=== PATIENT | male | born 1975 | race Caucasian/White ===

== ENCOUNTER 2023-04-25 06:17 | Emergency (ER) | payer OTHER, SELFPAY ==
[2023-04-25] VITALS (7 sets, daily range): BP systolic 115–148; BP diastolic 75–99; PULSE 57–59; RESP 16; TEMP 35.6–36.6; O2SAT 98; BMI 40.9
--- NOTE | 2023-04-25 06:23 | ED.GENADULT ---
HPI - General Adult General Time Seen by Provider: 06:28 Date Seen: 04/25/23 Chief complaint: Arrhythmia/Palpitations Stated complaint: afib Time Seen by Provider: 04/25/23 06:32 Source: patient, family, RN notes reviewed and old records reviewed Mode of arrival: ambulatory Limitations: no limitations History of Present Illness HPI narrative: 47-year-old male who comes in today with concern for atrial fibrillation. Said he had this in the past and over the last couple of days feels like it may be happening again. He describes it as feeling that skipped beats. Took some propanolol this morning which he had left over from several years ago. Denies chest pain or shortness of breath with this. Has started drinking caffeine again recently which he cut out when he was having issues before prior. Related Data Home Medications Medication Instructions Recorded Confirmed omeprazole 10 mg capsule,delayed 10 mg PO DAILY 04/25/23 04/25/23 release Previous Rx's Medication Instructions Recorded metoprolol succinate 25 mg 12.5 mg (1/2 x 25 mg) PO DAILY #30 04/25/23 tablet,extended release 24 hr tabs propranolol 20 mg tablet 20 mg PO TID PRN palpita #90 tabs 04/25/23 Allergies Allergy/AdvReac Type Severity Reaction Status Date / Time Penicillins AdvReac Verified 04/25/23 06:25 [facility] [place] Medical History (Updated 04/25/23 @ 06:36 by Jesus Watts MD) History of atrial fibrillation ?Z86.79 - Personal history of other diseases of the circulatory system (ICD-10) Social History Smoking Status: Never smoker Do you use any of these nicotine containing products: None How often do you have a drink containing alcohol: never AUDIT-C Alcohol total score: 0 Non-prescribed substance use: denies use Exam Narrative: Exam Narrative: General: Well-developed and well-nourished, no acute distress Head: Atraumatic and normocephalic Eyes: Pupils are equal reactive, extraocular motions intact, conjunctiva clear ENT: External nose and ears are normal, posterior pharynx without erythema or exudate Neck: No midline cervical tenderness, full spontaneous range of motion the neck, trachea midline, no adenopathy Heart: Regular rate and rhythm no murmurs or thrills, occasional extrasystole Lungs: Clear to auscultation bilaterally without wheezes or crackles Abdomen: Soft, nontender, nondistended with active bowel sounds Musculoskeletal: No tenderness, deformity, or edema Neurologic: Awake, alert, and oriented x3, no gross focal neurologic deficits, cranial nerves intact as tested Psych: Mood and affect are appropriate Skin: No rashes Const: Vital Signs, click to edit/add: Vital Signs - 24 hr 04/25/23 06:23 04/25/23 06:32 04/25/23 06:46 Temperature 97.9 F Pulse Rate 59 L 57 L Pulse Rate [Left P ulse Oximeter] 58 L Respiratory Rate 16 16 16 Blood Pressure 137/99 H 119/75 Blood Pressure [Ri ght Upper Arm] 148/99 H Pulse Oximetry 98 98 Oxygen Delivery Me thod Room Air Course Course Hospital Course: Patient seen and examined, prior records reviewed. Patient with reported history of atrial fibrillation presents today with concern for atrial fibrillation . What he describes sounds like skipped beats, possible PVCs or PACs. On exam, heart is regular with occasional extrasystole most consistent PVC or PAC. EKG is ordered and does indeed show PAC. Will monitor patient, check electrolytes and TSH, anticipate discharge. Reevaluation(s) Time of Reevaluation #1: 07:22 Reevaluation #1: Labs independently interpreted by me are reassuring with normal CBC, reassuring electrolytes. TSH is pending. Discussed treatment with patient. He was started on low-dose metoprolol and follow up with primary care. Time of Reevaluation #2: 07:33 Reevaluation #2: Updated patient with diagnosis and plan, he would prefer to have propanolol instead of metoprolol. Discussed that he should not take these together. Vital Signs Vital signs: Initial Vital Signs Temperature 97.9 F 04/25/23 06:23 Temperature Source Temporal Artery Scan 04/25/23 06:23 Pulse Rate 58 L 04/25/23 06:23 Pulse Rhythm Irregular 04/25/23 06:23 Respiratory Rate 16 04/25/23 06:23 Blood Pressure 148/99 H 04/25/23 06:23 Blood Pressure Mean 115 H 04/25/23 06:23 Blood Pressure Position Sitting 04/25/23 06:23 Pulse Oximetry 98 04/25/23 06:23 Oxygen Delivery Method Room Air 04/25/23 06:23 Vital Signs Temperature 97.9 F 04/25/23 06:23 Pulse Rate 58 L 04/25/23 06:23 Respiratory Rate 16 04/25/23 06:23 Blood Pressure 148/99 H 04/25/23 06:23 Pulse Oximetry 98 04/25/23 06:23 Oxygen Delivery Method Room Air 04/25/23 06:23 Temperature 97.9 F 04/25/23 06:23 Pulse Rate 57 L 04/25/23 06:46 Respiratory Rate 16 04/25/23 06:46 Blood Pressure 119/75 04/25/23 06:46 Pulse Oximetry 98 04/25/23 06:46 Oxygen Delivery Method Room Air 04/25/23 06:23 Medical Decision Making Lab Data Labs: Lab Results 04/25/23 Range/Units 06:34 WBC 6.88 (4.50-11.00) K/uL RBC 5.37 (4.30-5.90) m/uL Hgb 14.5 (13.5-17.5) gm/dL Hct 44.2 (37.0-53.0) % MCV 82 (80-100) fL MCH 27 (26-34) pg MCHC 33 (32-36) gm/dL RDW Coeff of Elsy 13.3 (11.5-15.5) % Plt Count 263 (140-440) K/uL Neut % (Auto) 59.8 (42.0-72.0) % Lymph % (Auto) 29.2 (20-44) % [place] % (Auto) 6.3 (0.0-11.0) % Eos % (Auto) 3.5 (0.0-7.0) % Baso % (Auto) 0.9 (0.0-3.0) % Neut # (Auto) 4.12 (1.7-7.0) K/uL Lymph # (Auto) 2.01 (0.90-2.90) K/uL [place] # (Auto) 0.40 (0.00-0.90) K/UL Eos # (Auto) 0.24 (0.00-0.50) K/uL Baso # (Auto) 0.06 (0.00-0.30) K/uL Abs Immat Gran (auto) 0.02 (0.00-0.30) K/uL Imm/Tot Granulo (auto) 0.3 % Sodium 136 (135-149) mmol/L Potassium 4.2 (3.6-5.1) mmol/L Chloride 105 (96-114) mmol/L Carbon Dioxide 23 (20-32) mmol/L BUN 22 (5-24) mg/dL Creatinine 0.9 (0.5-1.5) mg/dL Estimated Creat Clear 107.02 Estimated GFR 107 ml/min Glucose 101 (60-115) mg/dL Calcium 9.6 (8.4-10.6) mg/dL Magnesium 2.0 (1.5-2.6) mg/dL NT-Pro-B Natriuret Pep 26 pg/mL ECG Data Attestation: I personally reviewed and interpreted this ECG as follows: Prior ECG tracings: not available for review Interpretation: Performed at 6:27 a.m. demonstrates sinus rhythm with PAC, heart rate 59, AR 152, QRS 100, QTC 384, no acute ischemic change. No prior for comparison. Discharge Plan Discharge Clinical Impression: Palpitations, Premature atrial complexes Patient Disposition: Home, Self-Care Condition: Stable Instructions: Premature Atrial Contractions (ED) Additional Instructions: Avoid caffeine, stay well hydrated. Follow-up with your primary care doctor in 1 week for consideration for Cardiology referral. Take metoprolol daily or propanolol as needed. Do not take these together. Activity Level: Activity as Tolerated Discharge Diet: Regular Prescriptions: New metoprolol succinate 25 mg tablet extended release 24 hr 12.5 mg PO DAILY Qty: 30 0RF Rx Instructions: If you are still having episodes of palpitations after 3 days, increase to 1 tablet daily propranolol 20 mg tablet 20 mg PO TID PRN (Reason: palpita) Qty: 90 0RF No Action omeprazole 10 mg capsule,delayed release(DR/EC) 10 mg PO DAILY Follow Up/Referrals: Provider,Not a Local [Primary Care Provider] - Stand Alone Forms: IVDesk Info Instructions
[2023-04-25 07:00] LABS: Chloride* 105 mmol/L (96-114); Potassium* 4.2 mmol/L (3.6-5.1); Sodium* 136 mmol/L (135-149)
[2023-04-25 07:03] LABS: Blood Urea Nitrogen* 22 mg/dL (5-24); Carbon Dioxide* 23 mmol/L (20-32); Creatinine* 0.9 mg/dL (0.5-1.5); Est. Creatinine Clearance* 107.02; Estimated Glomerular Filt Rate 107 ml/min
[2023-04-25 07:04] LABS: Basophils Absolute Auto 0.06 K/uL (0.00-0.30); Basophils Percent Auto 0.9 % (0.0-3.0); Calcium* 9.6 mg/dL (8.4-10.6); Eosinophils Absolute Auto 0.24 K/uL (0.00-0.50); Eosinophils Percent Auto 3.5 % (0.0-7.0); Glucose* 101 mg/dL (60-115); Hematocrit 44.2 % (37.0-53.0); Hemoglobin* 14.5 gm/dL (13.5-17.5); Immature Granulocytes Abs Auto 0.02 K/uL (0.00-0.30); Immature Granulocytes Pct Auto 0.3 %; Lymphocytes Absolute Auto 2.01 K/uL (0.90-2.90); Lymphocytes Percent Auto 29.2 % (20-44); Mean Corpuscular HGB Conc 33 gm/dL (32-36); Mean Corpuscular Hemoglobin 27 pg (26-34); Mean Corpuscular Volume 82 fL (80-100); Monocytes Percent Auto 6.3 % (0.0-11.0); Neutrophils Absolute Auto 4.12 K/uL (1.7-7.0); Neutrophils Percent Auto 59.8 % (42.0-72.0); Platelet Count* 263 K/uL (140-440); RDW Coefficient of Variation % 13.3 % (11.5-15.5); Red Blood Count 5.37 m/uL (4.30-5.90); White Blood Count* 6.88 K/uL (4.50-11.00)
[2023-04-25 07:12] LABS: Slide Review Reflex No
[2023-04-25 07:19] LABS: NT Pro B Type NatriureticPept* 26 pg/mL
--- NOTE | 2023-04-26 17:48 | ED.NURSE ---
Patient called because metoprolol and propranolol prescriptions were not at [facility] as expected. [facility] pharmacy confirms they never received, verbal prescription information provided. Patient informed prescriptions were sent, advised to use the metoprolol or propranolol as prescribed but not both as the discharge instructions indicated. He denies questions or concerns.
== END 2023-04-25 07:41 | disposition home or self-care (01) ==
LOC: ED 06:45
PROVIDERS: Emergency Provider Family Medicine
DX: R00.2 Palpitations (principal); I49.1 Atrial premature depolarization
CPT/HCPCS: 36415; 80048; 83735; 83880; 84443; 85025; 93005; 99284

== ENCOUNTER 2023-05-07 16:21 | Outpatient (RCR) | payer OTHER, SELFPAY | END 2023-07-17 14:10 | disposition home or self-care (01) | PROVIDERS: Visit Provider Family Medicine | DX: M54.6 Pain in thoracic spine (principal); M54.2 Cervicalgia; Z51.89 Encounter for other specified aftercare | CPT/HCPCS: 97110; 97161 ==

== ENCOUNTER 2024-04-15 18:59 | Emergency (ER) | payer BC, SELFPAY ==
[2024-04-15 19:04] VITALS: BP 149/96; PULSE 64; RESP 16; TEMP 36.4; O2SAT 96; BMI 39.0
--- NOTE | 2024-04-15 19:16 | ED.GENADULT ---
HPI - General Adult General Chief complaint: Chest Pain Stated complaint: Pain in chest and left arm Time Seen by Provider: 04/15/24 19:10 History of Present Illness HPI narrative: This 48-year-old male comes in stating that he has been having some pain across his anterior upper chest for most of the past couple weeks. Today he felt some tingling in also has some pain in his posterior neck coming down into his shoulder and upper left arm. He does not report any nausea, vomiting, lightheadedness, shortness of breath, or diaphoresis. He does not have any exercise intolerance. He does not report any cardiac risk factors. He states that the pain is not reproducible with deep breath or other maneuvers. Related Data Home Medications ?Medication ?Instructions ?Recorded ?Confirmed omeprazole 10 mg capsule,delayed 10 mg PO DAILY 04/25/23 04/25/23 release Previous Rx's ?Medication ?Instructions ?Recorded metoprolol succinate 25 mg 12.5 mg (1/2 x 25 mg) PO DAILY #30 04/25/23 tablet,extended release 24 hr tabs propranolol 20 mg tablet 20 mg PO TID PRN palpita #90 tabs 04/25/23 Allergies Allergy/AdvReac Type Severity Reaction Status Date / Time Penicillins AdvReac Verified 04/25/23 06:25 Review of Systems Status of ROS: Reports: 10 or more systems reviewed and unremarkable except as noted in History and below Narrative: Constitutional: No fevers, no weight gain or loss. Eyes: No discharge. No vision changes. HENT: No congestion, no sore throat, no ear pain. Cardiovascular: No palpitations. Respiratory: No shortness of breath, no wheezes, no cough. Gastrointestinal: No abdominal pain, no vomiting, no diarrhea. Genitourinary: No dysuria, no hematuria. Musculoskeletal: Normal range of motion. Skin: No rashes, no pruritis. Neurological: No dizziness, weakness, sensory change, speech change. Endo/Heme/Allergies: No bruising or bleeding. No polydipsia. Pysch: no suicidality, no anxiety, no insomnia. All other systems reviewed and are negative. [facility] Medical History (Updated 04/15/24 @ 19:52 by Edwin Wong MD) History of atrial fibrillation ?Z86.79 - Personal history of other diseases of the circulatory system (ICD-10) Social History Smoking Status: Never smoker Do you use any of these nicotine containing products: None How often do you have a drink containing alcohol: never AUDIT-C Alcohol total score: 0 Non-prescribed substance use: denies use Exam Narrative: Exam Narrative: Constitutional: Well-developed, well-nourished, no acute distress. HEENT: Normocephalic, atraumatic. Neck: Normal range of motion. Nontender. Supple. Heart: Regular. No murmurs. Normal rate. Intact distal pulses. Lungs: Clear to auscultation. No chest discomfort. No wheezes, rhonchi, or rales. Abdomen: Normal bowel sounds. Nontender. No rebound tenderness. Genitalia: Deferred. Back: No midline tenderness. Normal range of motion. Extremities: Normal range of motion. No injury. Skin: Intact. No rash. Warm. No erythema or pallor. Neurologic: No altered sensation. No weakness. Alert and oriented. Psychiatric: No suicidality. No anxiety or depression. No insomnia. Nursing notes and vitals signs are reviewed. Const: Vital Signs, click to edit/add: Vital Signs - 24 hr 04/15/24 19:04 Temperature 97.5 F L Pulse Rate [Left P ulse Oximeter] 64 Respiratory Rate 16 Blood Pressure [Ri ght Upper Arm] 149/96 H Pulse Oximetry 96 Oxygen Delivery Me thod Room Air Course Vital Signs Vital signs: Initial Vital Signs Temperature 97.5 F L 04/15/24 19:04 Temperature Source Temporal Artery Scan 04/15/24 19:04 Pulse Rate 64 04/15/24 19:04 Pulse Rhythm Regular 04/15/24 19:04 Respiratory Rate 16 04/15/24 19:04 Blood Pressure 149/96 H 04/15/24 19:04 Blood Pressure Mean 113 H 04/15/24 19:04 Blood Pressure Position Sitting 04/15/24 19:04 Pulse Oximetry 96 04/15/24 19:04 Oxygen Delivery Method Room Air 04/15/24 19:04 Vital Signs Temperature 97.5 F L 04/15/24 19:04 Pulse Rate 64 04/15/24 19:04 Respiratory Rate 16 04/15/24 19:04 Blood Pressure 149/96 H 04/15/24 19:04 Pulse Oximetry 96 04/15/24 19:04 Oxygen Delivery Method Room Air 04/15/24 19:04 Temperature 97.5 F L 04/15/24 19:04 Pulse Rate 64 04/15/24 19:04 Respiratory Rate 16 04/15/24 19:04 Blood Pressure 149/96 H 04/15/24 19:04 Pulse Oximetry 96 04/15/24 19:04 Oxygen Delivery Method Room Air 04/15/24 19:04 Medical Decision Making MDM Narrative Medical decision making narrative: This patient comes in reporting chest discomfort over the past couple weeks. His symptoms are really not reproducible. He does not have exertional symptoms. His EKG and labs today returned with normal results. It seems more likely that this atypical chest pain is more related to his chest wall. Patient is satisfied with these results and feels okay to return home. Lab Data Labs: Lab Results 04/15/24 04/15/24 Range/Units 19:16 19:23 WBC 9.45 (4.50-11.00) K/uL RBC 5.06 (4.30-5.90) m/uL Hgb 13.8 (13.5-17.5) gm/dL Hct 42.2 (37.0-53.0) % MCV 83 (80-100) fL MCH 27 (26-34) pg MCHC 33 (32-36) gm/dL RDW Coeff of Elsy 13.2 (11.5-15.5) % Plt Count 247 (140-440) K/uL Neut % (Auto) 59.5 (42.0-72.0) % Lymph % (Auto) 30.7 (20-44) % [place] % (Auto) 6.6 (0.0-11.0) % Eos % (Auto) 2.6 (0.0-7.0) % Baso % (Auto) 0.5 (0.0-3.0) % Neut # (Auto) 5.62 (1.7-7.0) K/uL Lymph # (Auto) 2.90 (0.90-2.90) K/uL [place] # (Auto) 0.60 (0.00-0.90) K/UL Eos # (Auto) 0.25 (0.00-0.50) K/uL Baso # (Auto) 0.05 (0.00-0.30) K/uL Abs Immat Gran (auto) 0.01 (0.00-0.30) K/uL Imm/Tot Granulo (auto) 0.1 % Sodium 136 (135-149) mmol/L Potassium 3.9 (3.6-5.1) mmol/L Chloride 105 (96-114) mmol/L Carbon Dioxide 26 (20-32) mmol/L Anion Gap 5 L (7-15) mEq/L BUN 17 (5-24) mg/dL Creatinine 1.1 (0.5-1.5) mg/dL Estimated Creat Clear 86.64 Estimated GFR 84 ml/min Glucose 105 (60-115) mg/dL Calcium 9.4 (8.4-10.6) mg/dL POC Troponin I 0.00 L (0.01-0.04) ng/ml ECG Data Attestation: I personally reviewed and interpreted this ECG as follows: Interpretation: Normal sinus rhythm. Rate is 64 beats per minute. There are no ST or T-wave abnormalities. Discharge Plan Discharge Clinical Impression: Atypical chest pain Patient Disposition: Home, Self-Care Condition: Stable Additional Instructions: Continue current plans. Activity as tolerated. Follow up with MD or return if worsening. Prescriptions: No Action omeprazole 10 mg capsule,delayed release(DR/EC) 10 mg PO DAILY metoprolol succinate 25 mg tablet extended release 24 hr 12.5 mg PO DAILY Qty: 30 0RF Rx Instructions: If you are still having episodes of palpitations after 3 days, increase to 1 tablet daily propranolol 20 mg tablet 20 mg PO TID PRN (Reason: palpita) Qty: 90 0RF Follow Up/Referrals: Provider,Not a Local [Primary Care Provider] - Stand Alone Forms: [employer]wave[employer] Info Instructions
[2024-04-15 19:29] LABS: Basophils Absolute Auto 0.05 K/uL (0.00-0.30); Basophils Percent Auto 0.5 % (0.0-3.0); Eosinophils Absolute Auto 0.25 K/uL (0.00-0.50); Eosinophils Percent Auto 2.6 % (0.0-7.0); Hematocrit 42.2 % (37.0-53.0); Hemoglobin* 13.8 gm/dL (13.5-17.5); Immature Granulocytes Abs Auto 0.01 K/uL (0.00-0.30); Immature Granulocytes Pct Auto 0.1 %; Lymphocytes Percent Auto 30.7 % (20-44); Mean Corpuscular HGB Conc 33 gm/dL (32-36); Mean Corpuscular Hemoglobin 27 pg (26-34); Mean Corpuscular Volume 83 fL (80-100); Monocytes Percent Auto 6.6 % (0.0-11.0); Neutrophils Absolute Auto 5.62 K/uL (1.7-7.0); Neutrophils Percent Auto 59.5 % (42.0-72.0); Platelet Count* 247 K/uL (140-440); RDW Coefficient of Variation % 13.2 % (11.5-15.5); Red Blood Count 5.06 m/uL (4.30-5.90); White Blood Count* 9.45 K/uL (4.50-11.00)
[2024-04-15 19:34] LABS: Slide Review Reflex No
[2024-04-15 19:40] LABS: Chloride* 105 mmol/L (96-114)
[2024-04-15 19:41] LABS: Potassium* 3.9 mmol/L (3.6-5.1); Sodium* 136 mmol/L (135-149)
[2024-04-15 19:43] LABS: Creatinine* 1.1 mg/dL (0.5-1.5); Est. Creatinine Clearance* 86.64; Estimated Glomerular Filt Rate 84 ml/min
[2024-04-15 19:44] LABS: Anion Gap 5 mEq/L (7-15); Blood Urea Nitrogen* 17 mg/dL (5-24); Calcium* 9.4 mg/dL (8.4-10.6); Carbon Dioxide* 26 mmol/L (20-32); Glucose* 105 mg/dL (60-115)
== END 2024-04-15 19:56 | disposition home or self-care (01) ==
PROVIDERS: Emergency Provider Emergency Medicine Emergency Medical Services
DX: R07.9 Chest pain, unspecified (principal)
CPT/HCPCS: 36415; 80048; 84484; 85025; 93005; 99284

== ENCOUNTER 2024-11-12 15:29 | Outpatient (CLI) | payer BC, SELFPAY | END 2024-11-12 15:30 | disposition home or self-care (01) | PROVIDERS: PCP Internal Medicine; Visit Provider Internal Medicine | DX: R07.9 Chest pain, unspecified (principal) | CPT/HCPCS: 80053; 80061 ==

== ENCOUNTER 2024-11-25 18:08 | Emergency (ER) | payer BC, SELFPAY ==
--- OUTSIDE RECORDS SUMMARY | 2024-11-25 18:10 | XMS_ITS | Clinical Summary ---
Author Organization [facility] Address [facility] [place] [address] Care Team Providers Care Equal Opportunity Specialist Name Role Phone Pcp, No Primary Care Provider Unavailabl e Allergies Active Allergy Reactions Criticality Noted Date Comments Penicillamine Edema 02/07/2007 Medications LORazepam (ATIVAN) 0.5 mg tabIndications: Right renal mass Take 1 Tablet (0.5 mg) by mouth every 6 hours if needed for Anxiety. Take 30 minutes prior to MRI 1 Tablet 05/09/2024 Active Active Problems Problem Noted Date Diagnosed Date Right renal mass 05/09/2024 Atypical chest pain 12/02/2018 Overview (12/02/2018): November 2018: echocardiogram stress test normal. Lump in neck 09/09/2011 Overview (09/09/2011): August 2011: 3.5 x 1.7 x 1.0 cm enlarged, but otherwise normal appearing, lymph node in close proximity to the submandibular gland. Recheck in 1 month and order Contrast CT scan of neck if not gone. Elevated liver enzymes 09/09/2011 Overview (09/09/2011): August 2011: ALT 47. TOBACCO USE Immunizations Immunization Administration Dates Next Due Td, Preservative Free (age >= 7 Years) 1 Family History Medical History Relation Name Comments Cancer Mother Skin Genetic Other Grprs: colon CA ~father: HTN Relation Name Status Comments Mother Other Social History Tobacco Use Types Packs/Day Years Used Date Smoking Tobacco: Former Cigarettes 0.5 15 Smokeless Tobacco: Never Tobacco Cessation:Ready to Q uit: Yes; Counseling Given: Yes Comments:still occassionally smokes Alcohol Use Standard Drinks/Week Comments Yes 0 (1 standard drink = 0.6 oz pur e alcohol) occasional PHQ-2 Answer Date Recorded PHQ-2 Score 0 10/28/2019 Social Connections Answer Date Recorded Frequency of Communication with Friends and Fami ly Not on file 09/10/2021 Financial Resource Strain Answer Date R ecorded Difficulty of Paying Living Expenses Not on file 09/10/2021 Difficulty of Paying Living Expenses Not on file 09/10/2021 Sex and Gender Information Value Date Recorded Sex Assigned at Not on file 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[employer] Gender Identity Not on file Sexual Orientation Not on file Obstetrics History Last Filed Vital Signs Vital Sign Reading Time Taken Comments Blood Pressure 127/88 05/07/2024 2:57 PM CDT Pulse 88 05/07/2024 2:57 PM CDT Temperature 36.8 C (98.3 F) 07/21/2022 11:13 AM TEMPLATE WORKER Respiratory Rate 16 11/07/2019 2:10 PM TEMPLATE WORKER Oxygen Saturation 96% 05/07/2024 2:57 PM CDT Inhaled Oxygen Concentration - - Weight 132.2 kg (291 lb 8 oz) 04/10/2023 7:01 AM CDT Height 176.5 cm (5' 9.49) 11/07/2019 2:10 PM CS T Body Mass Index 42.44 11/07/2019 2:10 PM TEMPLATE WORKER Plan of Treatment Health Maintenance Due Date Last Done Comments Tdap 1988 HIV for age 15-65 1992 Hepatitis C screening for age 18-79 11/30/1995 BMI (ht and wt on same day) for age 18+ 11/07/2020 11/07/2019, 10/28/2019, 12/10/2018, Additional history exists Depression screening for age 12+ 11/07/2020 11/07/2019, 10/30/2019, 10/28/2019, Additional history exists Tetanus booster 02/07/2021 02/07/2011 Colonoscopy through age 75 2022 Lipids for age 45-75 2022 09/08/2011 COVID-19 vaccine series (2 - 2023- season) 2024 06/03/2021 Influenza Vaccine (#1) 2024 Pneumococcal series for age 6-49 Aged Out No longer eligible based on patient's age to complete this topic Procedures Procedure Name Priority Date/Time Associated Diagnosis Comments LIPID PANEL W REFLEX MEASURED LDL Routine 09/08/2011 8:14 AM TEMPLATE WORKER Screening cholesterol level from Last 3 Months or Most Recently Relevant to Health Maintenance Results * LIPID PANEL W REFLEX MEASURED LDL (09/08/2011 8:14 AM TEMPLATE WORKER) CHOLESTEROL,TOTAL 183 110 - 199 mg/dL [facility] TRIGLYCERIDES 110 40 - 149 mg/dL [facility] HDL CHOLESTEROL 53 >40 mg/dL [facility] CHOL/HDL RATIO 3.45 <4.51 [facility] LDL CHOLESTEROL 108 <131 mg/dL [facility] PATIENT STATUS Fasting [facility] Blood specimen (specimen) BLOOD SPECIMEN / Unknown 09/08/2011 8:14 AM TEMPLATE WORKER 09/08/2011 8:13 AM TEMPLATE WORKER us Myles Phillips MD CHEMISTRY Final Res ult [facility] [place]NAL ZIP [id number] [place] [id number] from Last 3 Months or Most Recently Relevant to Health Maintenance Insurance [facility] Care Teams Equal Opportunity Specialist Relationship Specialty Start Date End Date Pcp, No . PCP - General 01/29/18
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
--- OUTSIDE RECORDS SUMMARY | 2024-11-25 18:10 | XMS_ITS | Continuity of Care Document ---
Author Organization [place] [facility] Address [address] [place] [address] Assessment Encounter Date Assessment Date Assessment LastModified by Organization Details LastModified Time 11/24/2024 11/24/2024 ASSESSMENT: Patient is a good candidate for conservative care and the prognosis is for a favorable outcome that achieves the patients' goals. We discussed etiology, activity modifications, home care, and other treatment options. Initially, it is recommended that the patient receive in-office treatment 1 times per week for 8 weeks at which time a re-evaluation will be performed to determine an appropriate change in plan. Initially, treatment will focus on joint manipulation to restore range of motion and reduce pain. We will slowly progress to therapeutic exercises and activities to improve function, strength, and stability may also be used as warranted. If the patient is not responding as expected, more invasive procedures will be discussed along with a referral. All considerations above were discussed with the patient and questions answered to satisfaction. If the patient should have any additional questions, or should the condition evolve or worsen, the patient should not hesitate to contact our office. [email or web address] Not available 11/25/2024 17:49:22 Plan of Treatment Reminders Order Date Submit Date Provider Last Modified By Organization Details Last Modified Time Details Appointments None record ed. Lab None record ed. Referral None record ed. Procedures None record ed. Surgeries None record ed. Imaging None record ed. Medication Orders None record ed. Patient TargetsNo targets recorded. Patient InstructionsNo instructions recorded. Reason for Referral None Reported. Problems Name Problem SNOMED Code Status Onset Date Resolution Date Notes Provider Name and Address Organization Details Recorded Time Thoracic segmental dysfunction 941408453 Active 2024 Clark Pastrana [place] [address], [place], [address], [place] [facility] 17:49:23 Lumbar segmental dysfunction 479131910 Active 2024 [facility] [place] [address], [place], [address], [facility] - [facility] 5 17:49:23 Low back pain 259248264 Active 2024 [facility] [place] [address], [place], [address], [facility] - [facility] 5 17:49:23 Somatic dysfunction of sacral spine 709751636 Active 2024 [place], [place] [address], [place], [address], [facility] - [facility] 17:49:23 Problem Notes None recorded. Procedures Surgical History Date Name Laterality Status Provider Name and Address Organization Details Recorded Time 40438: Spinal manipulation , 3 to 4 regions completed [place], [place] [address], [place], [address], [facility] 11/25/2024 17:51:26 Imaging Results None recorded. Procedure Notes None recorded. Medical Equipment None Reported. Medications Name Sig Start Date Stop Date Status Note LastModified by Organization Details LastModified Time lorazepam 0.5 mg tablet TAKE 1 TABLET (0.5 MG) BY MOUTH EVERY 6 HOURS IF NEEDED FOR ANXIETY. TAKE 30 MINUTES PRIOR TO MRI active Not Available Not Available No t Available propranolol 20 mg tablet TAKE 1 TABLET BY MOUTH THREE TIMES A DAY NEEDED FOR PALPITATION S active Not Available Not Available No t Available esomeprazole magnesium 20 mg capsule,michael yed release PLEASE SEE ATTACHED FOR DETAILED DIRECTIONS active Not Available Not Available N ot Available Vitals None Recorded Social History None recorded. Functional Status None recorded. Mental Status None recorded. Family History Nothing Reported. Medical History No medical history recorded. Past Encounters Encounter ID Performer Location Encounter Start Date Encounter Closed Date Diagnosis/Indication Diagnosis SNOMED-CT Code Diagnosis ICD10 Code Diagnosis Note [id number] [facility] [address] [place] [address] 11/24/2024 15:08:37 11/25/2024 17:51:45 Lumbar segmental dysfunction 974834131 M99.03 Low back pain 106245213 M54.50 Somatic dy sfunction of sacral spine 287217472 M99.04 Thoracic s egmental dysfunction 022773243 M99.02 Health Concerns Section Related Observation LastModified by Organization Detai ls LastModified Time None Recorded Concern Status LastModified by Organization Details LastModified Time None Recorded Payers Encounter Date Sequence Insurance Name Policy Number Policy Corral Covered Member ID Corral Member ID Guarantor Name 11/24/2024 1 *SELF PAY* Mamadou Stauffer Notes Date Note Type Note Provider Name and Address Organization Details Recorded Time 11/24/2024 text/html HPI - Lumbar SpineReported bypatient.Location: left; With radiation to knee Quality:aching Severity:not changing Timing:morning Aggravating Factors:standing Alleviating Factors:ice Scot Kirby Pastrana [place] [address], [place], [address], [facility] 11/25/2024 17:51:42
--- OUTSIDE RECORDS SUMMARY | 2024-11-25 18:11 | XMS_ITS | Data Portability ---
Author Organization [place] [facility], [facility] Address [address] [place] [address] Assessment Encounter Date Assessment Date Assessment LastModified [...] Organization Details Recorded Time Thoracic segmental dysfunction 859309132 Active 2024 Clark Pastrana [place] [address], [place], [address], [place] [facility] 17:49:23 Lumbar segmental dysfunction 894242409 Active 2024 Clark Pastrana [place] [address], [facility] [place], [address], [place] [facility] 17:49:23 Low back pain 818433677 Active 2024 [place] [address], [place], [address], [place] [facility] 17:49:23 Somatic dysfunction of sacral spine 675045144 Active 2024 [facility] [place] Gr[address], [facility] [place], [address], [place] [facility] 17:49:23 Problem Notes None recorded. Procedures Surgical History Date Name Laterality Status Provider Name and Address Organization Details Recorded Time 38144: Spinal manipulation , 3 to 4 regions completed [facility] [place] [address], [place], [address], [facility] - [facility] 11/25/2024 17:51:26 Imaging Results None recorded. Procedure [...] SNOMED-CT Code Diagnosis ICD10 Code Diagnosis Note [id number] [facility] [address] [place] [address] [place] [address] 11/24/2024 15:08:37 11/25/2024 17:51:45 Lumbar segmental dysfunction 246340889 M99.03 Low back pain 156143004 M54.50 Somatic dy sfunction of sacral spine 578673611 M99.04 Thoracic s egmental dysfunction 179603077 M99.02 Health Concerns Section Related Observation LastModified by Organization Detai ls LastModified Time None Recorded Concern Status LastModified by Organization Details LastModified Time None Recorded Advance Directives Directive None Recorded Payers Encounter Date Sequence Insurance Name Policy Number Policy Corral Covered Member ID Corral Member ID Guarantor Name 11/24/2024 1 *SELF PAY* Mamadou Stauffer Notes Date Note Type Note Provider Name and Address Organization Details Recorded Time 11/24/2024 text/html HPI - Lumbar SpineReported bypatient.Location: left; With radiation to knee Quality:aching Severity:not changing Timing:morning Aggravating Factors:standing Alleviating Factors:ice Clark Pastrana [place] [address] [facility], [place], [address], [facility] - [facility] 11/25/2024 17:51:42
[2024-11-25 18:36] VITALS: BP 129/84; PULSE 63; RESP 18; TEMP 36.5; O2SAT 96; BMI 39.2
--- NOTE | 2024-11-25 19:41 | CRLHL7_ITS ---
For Patients: As a result of the Century Cures Act, medical imaging exams and procedure reports are released immediately into your electronic medical record. You may view this report before your referring provider. If you have questions, please contact your health care provider. INDICATION: Chest pain. TECHNIQUE: Chest 2 views. COMPARISON: 10/03/2016. FINDINGS: Cardiovascular and mediastinum: Heart size and vasculature are normal in caliber and appearance. Lungs and pleural spaces: No focal consolidation, pleural effusion, or pneumothorax. Bones and soft tissues: Unremarkable for age. IMPRESSION: No evidence of an acute pulmonary process. Dictated by Ramon Barrow MD @ 11/25/2024 8:37:02 PM (Electronically Signed)
[2024-11-25] MEDS: GI COCKTAIL (VISC LIDO/ANTACID) 30 ML PO (19:46)
--- OUTSIDE RECORDS SUMMARY | 2024-11-25 19:47 | XMS_ITS | Clinical Summary ---
Author Organization [facility] Address [facility] [place] [address] Care Team Providers Care Wildlife Conservation Officer Name Role Phone Pcp, No Primary Care [...] on file Legal Sex Male 5:49 AM OUTPATIENT ADMITTING CLERK Gender Identity Not on file Sexual Orientation Not on file Obstetrics History Last Filed Vital Signs Vital Sign Reading Time Taken Comments Blood Pressure 127/88 05/07/2024 2:57 PM CDT Pulse 88 05/07/2024 2:57 PM CDT Temperature 36.8 C (98.3 F) 07/21/2022 11:13 AM OUTPATIENT ADMITTING CLERK Respiratory Rate 16 11/07/2019 2:10 PM OUTPATIENT ADMITTING CLERK Oxygen Saturation 96% 05/07/2024 2:57 PM CDT Inhaled Oxygen Concentration - - Weight 132.2 kg (291 lb 8 oz) 04/10/2023 7:01 AM CDT Height 176.5 cm (5' 9.49) 11/07/2019 2:10 PM CS T Body Mass Index 42.44 11/07/2019 2:10 PM OUTPATIENT ADMITTING CLERK Plan of Treatment Health Maintenance Due Date [...] REFLEX MEASURED LDL Routine 09/08/2011 8:14 AM OUTPATIENT ADMITTING CLERK Screening cholesterol level from Last 3 Months or Most Recently Relevant to Health Maintenance Results * LIPID PANEL W REFLEX MEASURED LDL (09/08/2011 8:14 AM OUTPATIENT ADMITTING CLERK) CHOLESTEROL,TOTAL 183 110 - 199 mg/dL [facility] TRIGLYCERIDES 110 40 - 149 mg/dL [facility] HDL CHOLESTEROL 53 >40 mg/dL [facility] CHOL/HDL RATIO 3.45 <4.51 [facility] LDL CHOLESTEROL 108 <131 mg/dL [facility] PATIENT STATUS Fasting [facility] Blood specimen (specimen) BLOOD SPECIMEN / Unknown 09/08/2011 8:14 AM OUTPATIENT ADMITTING CLERK 09/08/2011 8:13 AM OUTPATIENT ADMITTING CLERK us Myles Phillips MD CHEMISTRY Final Res ult [facility] INTERNAL [address]IP [address] [place] [id number] from Last 3 Months or Most Recently Relevant to Health Maintenance Insurance [facility] Care Teams Wildlife Conservation Officer Relationship Specialty Start Date End Date Pcp, No . PCP - General 01/29/18
--- OUTSIDE RECORDS SUMMARY | 2024-11-25 19:47 | XMS_ITS | Clinical Summary ---
Author Organization [facility] Address [address] [place] [address] Care Team Providers Care Diagnostic Assistant Name Role Phone Sonia Chou M.D. Primary Care Provider [phone] Source Comments Patient records contain information from all sites at [facility]. For routine questions regarding patient records, call [phone] during business hours, M-F 8:00 AM - 5:00 PM Central Time. Record requests for emergency care only can be directed to [phone] at any time.[facility] Allergies Active Allergy Reactions Criticality Noted Date Comments Penicillins Other (see comments) Medium 05/06/2019 throat rahman. Occurred around the year 1999. [place] a severe heartburn-like burning sensation up the [...] Mimi ent decision) PPSV23 07/11/2021(Deferred: Patient veda edelmriaisabelle) SARS-COV-2 (COVID-19) - ELIANA CUTLER ([employer])(Discontinued) 06/03/2021 [...] week 04/05/2022 How often do you attend [facility] or confucianist services? 1 to 4 times per year 04/05/2022 Do you belong to any clubs o r organizations such as lutheran groups, unions, fraternal or athletic groups, or [...] Answer Date Recorded PHQ-2 Score 0 04/10/2022 [facility] [employer] of Occupat ional Health - Occupational Stress [...] your living situation today? I have a [facility] place to live 05/03/2023 Education Answer [...] Comments Blood Pressure 115/73 07/16/2023 2:43 PM [employer] Pulse 66 07/16/2023 2:43 PM [employer] Temperature 36.2 C (97.2 F) 05/10/2023 10:17 AM CDT Respiratory Rate 20 05/03/2023 10:09 PM CDT Oxygen Saturation 96% 05/10/2023 10:17 AM CDT Inhaled Oxygen Concentration - - Weight 134 kg (294 lb 15.6 oz) 07/16/2023 7:48 A M [employer] Height 179 cm (5' 10.47) 07/05/2021 3:09 [...] LIPID PANEL, S Routine 07/16/2023 9:29 AM [employer] Discomfort Chest COLOGUARD Routine 05/30/2023 5:15 AM CDT Screening Colon Cancer Average Risk BASIC METABOLIC PANEL, S/P STAT 05/03/2023 9:47 PM CDT from Last 3 Months or Most Recently Relevant to Health Maintenance Results * (ABNORMAL) Lipid Panel (07/16/2023 9:29 AM [employer]) Triglycerides 139 mg/dL 07/16/2023 9:50 AM [employer] [facility] Comment: ----REFERENCE VALUE---- Normal: <150 mg/dL Borderline High: 150-199 mg/dL High: 200-499 mg/dL Very High: > or =500 mg/dL Cholesterol, Total 252(H) mg/dL 2022 9:50 AM [employer] [facility] Comment: ----REFERENCE VALUE---- Desirable: < 200 mg/dL Borderline High: 200 - 239 mg/dL High: > or = 240 mg/dL Cholesterol, LDL, Calculated 175(H) mg/dL 07/16/2023 9:50 AM [employer] [facility] Comment: ----REFERENCE VALUE---- Desirable: <100 mg/dL Above Desirable: 100-129 mg/dL Borderline High: 130-159 mg/dL High: 160-189 mg/dL Very High: >=190 mg/dL ----ADDITIONAL INFORMATION---- LDL cholesterol calculated using the Rich/NIH equation. Cholesterol, HDL 52 >=40 mg/dL 07/16/20 9:50 AM [employer] [facility] Cholesterol, Non-HDL, Calculated 200(H) mg/dL 07/16/2023 9:50 AM [employer] [facility] Comment: ----REFERENCE VALUE---- Desirable: <130 mg/dL Above Desirable: 130-159 mg/dL Borderline High: 160-189 mg/dL High: 190-219 mg/dL Very High: > or =220 mg/dL Fasting (8 HR or more) No 07/16/2023 9:30 AM [employer] [facility] Blood (Blood, Venous) 07/16/2023 9:29 AM [employer] 07/16/2023 9:30 AM [employer] us Zeeshan Noel APRN, C.N.P. LAB BLOOD ADD-ON Final Result [facility] [address] [place] [address], [facility] RDWG [facility] [place] [address] [place] [address] * Cologuaquin - Sent Out Lab (05/30/2023 5:15 AM CDT) [facility] Signature Result Negative Negative 06/05/2023 10:27 AM [...] Charles et al, N Engl J Med 2014;370(14):5331-8311) The normal value (reference range) for this assay is negative. COLOGUARD RE-SCREENING RECOMMENDATION: Periodic colorectal cancer screening is an important part of preventive healthcare for asymptomatic individuals at average risk for colorectal cancer. Following a negative Cologuard result, the [place] Cancer Society and U.S. Multi-Society Task Force screening guidelines recommend a Cologuard re-screening interval of 3 years. References: [employer] Cancer Society Guideline for Colorectal Cancer Screening: https://www.cancer.org/cancer/ndomc-dzcqgx-szdwkx/detection- diagnosis-staging/acs-recommendations.html.; Mario GOMES, Verna DIAZ, Bradford DicksonK, Colorectal Cancer Screening: Recommendations for Physicians and Patients from the U.S. Multi-Society Task Force on Colorectal Cancer Screening , Am J Gastroenterology 2017; 112:2213-1172. TEST DESCRIPTION: Composite algorithmic analysis of stool [...] (Jae Elizondo al, N Engl J Med 2014;370(14):9872-0285.) Cologuard may produce a false negative or false positive result (no colorectal cancer or precancerous polyp present at colonoscopy follow up). A negative Cologuard test result does not guarantee the absence of CRC or advanced adenoma (pre-cancer). The current Cologuard screening interval is every 3 years. ([place] Cancer Society and U.S. Multi-Society Task Force). Cologuard performance data in a 10,000 patient pivotal study using colonoscopy as the reference method can be accessed at the following location: www.Carrot.mx/results. Additional description of the Cologuard test process, warnings and precautions can be found at www.iZettlerd.com. Stool (Stool) 05/30/2023 5:1 5 AM CDT 05/31/2023 4:59 PM CDT Kamini Dennis APRN, C.N.P., D.N.P. LAB BODY FLUIDS AND STOOLS ORDERABLES Final Result [facility] [address] [place] [address] [facility] [address] [facility] [address], [address] [place] [address] * Basic Metabolic Panel (05/03/2023 9:47 PM [...] P.A. LAB BLOOD ADD-ON F inal Result [facility] [address] [place] [id number], [facility] CNFL [facility] in [address] [address] from Last 3 Months or Most Recently Relevant to Health Maintenance Insurance [facility] [place] [id number] Care Teams Diagnostic Assistant Relationship Specialty Start Date End Date Sonia Chou M.D. [address] [place] [phone] PCP - General 01/25/24
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
[2024-11-25 20:26] LABS: Basophils Absolute Auto 0.06 K/uL (0.00-0.30); Basophils Percent Auto 0.7 % (0.0-3.0); Eosinophils Absolute Auto 0.29 K/uL (0.00-0.50); Eosinophils Percent Auto 3.4 % (0.0-7.0); Hemoglobin* 15.1 gm/dL (13.5-17.5); Lymphocytes Absolute Auto 2.82 K/uL (0.90-2.90); Lymphocytes Percent Auto 33.2 % (20-44); Mean Corpuscular HGB Conc 34 gm/dL (32-36); Mean Corpuscular Hemoglobin 28 pg (26-34); Mean Corpuscular Volume 83 fL (80-100); Monocytes Percent Auto 5.4 % (0.0-11.0); Neutrophils Absolute Auto 4.86 K/uL (1.7-7.0); Neutrophils Percent Auto 57.3 % (42.0-72.0); Platelet Count* 275 K/uL (140-440); RDW Coefficient of Variation % 13.4 % (11.5-15.5); Red Blood Count 5.42 m/uL (4.30-5.90); White Blood Count* 8.49 K/uL (4.50-11.00)
[2024-11-25 20:33] LABS: Slide Review Reflex No
[2024-11-25 20:37] LABS: Albumin* 4.7 g/dL (3.3-5.0); Chloride* 106 mmol/L (96-114); Potassium* 3.8 mmol/L (3.6-5.1); Sodium* 139 mmol/L (135-149)
[2024-11-25 20:40] LABS: Aspartate Amino Transferase* 23 U/L (12-35); Bilirubin Direct* 0.3 mg/dL (0.0-0.5); Bilirubin Total* 0.6 mg/dL (0.1-1.5); Blood Urea Nitrogen* 19 mg/dL (5-24); Calcium* 9.5 mg/dL (8.4-10.6); Creatinine* 0.9 mg/dL (0.5-1.5); Estimated Glomerular Filt Rate 107 ml/min; Glucose* 92 mg/dL (60-115); Total Protein* 7.7 g/dL (6.0-8.3)
[2024-11-25 20:41] LABS: Alanine Aminotransferase* 35 U/L (4-50); Alkaline Phosphatase* 77 U/L (40-150); Lipase* 50 U/L (23-300); Magnesium* 2.1 mg/dL (1.5-2.6)
[2024-11-25 21:02] LABS: C Reactive Protein* < 0.5 mg/dL (0.5-1.0)
[2024-11-25 21:10] LABS: Anion Gap 13 mEq/L (7-15); Carbon Dioxide* 20 mmol/L (20-32)
[2024-11-25 21:19] VITALS: BP 122/79; PULSE 68; RESP 18; TEMP 36.5; O2SAT 96
[2024-11-25 21:20] VITALS: BP 122/79; PULSE 68; RESP 18; TEMP 36.5
== END 2024-11-25 21:20 | disposition home or self-care (01) ==
PROVIDERS: Emergency Provider Emergency Medicine; PCP Internal Medicine
DX: K21.9 Gastro-esophageal reflux disease without esophagitis (principal)
CPT/HCPCS: 36415; 71046; 80048; 80076; 83690; 83735; 84484; 85025; 86140; 93005; 99284; 99285; A9270

== ENCOUNTER 2025-01-20 12:45 | Outpatient (CLI) | payer BC, SELFPAY ==
[2025-01-20] MEDS: PERFLUTREN LIPID MICROSPHERES 2 ML VIAL IVP (13:49)
[2025-01-20 13:57] VITALS: BP 134/90; PULSE 82; RESP 18
--- NOTE | 2025-01-20 14:09 | W.PM.STED ---
Stress Test Note Date Date of test: 01/20/25 Providers Primary care provider: Sumit Guallpa Stress test physician: Norman Arthur Stress Test Note Stress test ordered: Stress Echo Indication for test: Chest pain Stress test medicine: Definity Results discussion: This pleasant gentleman presents for the above test after discussion the risks benefits and side effects he would like to proceed, pretest EKG shows normal sinus rhythm, with a ventricular rate of 71, and a blood pressure 124/80. No acute ST wave changes are noted. Cardiac stress test medical history form is reviewed entirely. Using standard Jason protocol patient is exercised for a total time of 10 minutes 2nd, achieved a metabolic equivalent of 11.7 Mets. Maximum heart rate was 162, maximum blood pressure was 198/100. During this test he had no chest pain shortness of breath or any other anginal equivalent, there is no specific ST wave changes suggestive of ischemia would reviewed. There are no dysrhythmias Impression: Negative electrographic portion of stress echo, both objectively and subjectively negative. Follow up suggested: Await echo imaging clinical correlation with this will be needed once report by Cardiology on the echo portion is reviewed, patient left this testing facility in good condition,there were no complications.
== END 2025-01-20 14:00 | disposition home or self-care (01) ==
LOC: STRESS 12:48
PROVIDERS: PCP Internal Medicine; Visit Provider Internal Medicine
DX: R07.9 Chest pain, unspecified (principal)
CPT/HCPCS: 93016; 93325; 93351; Q9957

== ENCOUNTER 2025-02-10 10:29 | Emergency (ER) | payer BC, SELFPAY ==
[2025-02-10] VITALS (12 sets, daily range): BP systolic 114–115; BP diastolic 80–85; PULSE 78–85; RESP 9–19; TEMP 35.8; O2SAT 95–97; BMI 38.7
--- OUTSIDE RECORDS SUMMARY | 2025-02-10 10:31 | XMS_ITS | Data Portability ---
Author Organization [place] - [employer], autoContract - E [employer] [facility] SEMICONDUCTOR EQUIPMENT TECHNICIAN [facility] Address [address] [place] [address] Assessment Encounter Date Assessment Date Assessment LastModified [...] should not hesitate to contact our office. Not available 11/25/2024 17:49:22 02/03/2025 02/03/2025 ASSESSMENT: Patient is a good candidate for [...] should not hesitate to contact our office. Not available 02/03/2025 18:56:29 Plan of Treatment Reminders Order Date Submit [...] Organization Details Recorded Time Thoracic segmental dysfunction 935101110 Active 2024 [facility] [place], [place], [address], [facility] 17:49:23 Lumbar segmental dysfunction 634902941 Active 2024 [facility] [place] [address], [place], [address], [facility] 17:49:23 Low back pain 445763731 Active 2024 [facility] [place] [address], [place], [address], [facility] 17:49:23 Somatic dysfunction of sacral spine 768758103 Active 2024 [facility] [place] [address], [place], [address], [facility] 17:49:23 Problem Notes None recorded. Procedures Surgical History Date Name Laterality Status Provider Name and Address Organization Details Recorded Time 07379: Spinal manipulation , 3 to 4 regions completed [place], [place] [address], [place], [address], [facility] 02/03/2025 18:58:15 98898: Spinal manipulation , 3 to 4 regions completed Clark Pastrana [place] [address] [place] [address], [place], [address], [facility] 11/25/2024 17:51:26 Imaging Results None recorded. Procedure Notes None recorded. Medical Equipment None Reported. Medications Name Sig Start Date Stop Date Status Note LastModified by Organization Details LastModified Time sucralfate 100 mg/mL oral suspension TAKE 5ML BY MOUTH FOUR TIMES DAILY SWISH IN MOUTH AND SWALLOW USE AFTER FOOD/DRINK active Not Available Not Available N ot Available lorazepam 0.5 mg tablet TAKE 1 TABLET (0.5 MG) BY MOUTH EVERY 6 HOURS IF NEEDED FOR ANXIETY. TAKE 30 MINUTES PRIOR TO MRI active Not Available Not Available No t Available sertraline 25 mg tablet TAKE 1 TABLET BY MOUTH EVERY DAY active Not Available Not Available No t Available propranolol 20 mg tablet TAKE 1 TABLET BY MOUTH THREE TIMES A DAY NEEDED FOR PALPITATION S active Not Available Not Available No t Available celecoxib 100 mg capsule TAKE 1 CAPSULE BY MOUTH TWICE A DAY NEEDED FOR PAIN active Not Available Not Available No t Available esomeprazole magnesium 20 mg capsule,michael yed release TAKE 1 CAPSULE BY MOUTH EVERY DAY active Not Available Not Available No t Available Vitals None Recorded Social History None recorded. Functional Status None recorded. Mental Status None recorded. Family History Nothing Reported. Medical History No medical history recorded. Past Encounters Encounter ID Performer Location Encounter Start Date Encounter Closed Date Diagnosis/Indication Diagnosis SNOMED-CT Code Diagnosis ICD10 Code Diagnosis Note [id number] Clark Pastrana [place] [facility] [address] [place] [address] [place] [address] 11/24/2024 15:08:37 11/26/2024 09:50:52 Lumbar segmental dysfunction 734851641 M99.03 Low back pain 976104635 M54.50 Somatic dy sfunction of sacral spine 097798938 M99.04 Thoracic s egmental dysfunction 325594189 M99.02 [id number] Clark Pastrana [place] [facility] [address] [place] [address] 02/03/2025 16:23:22 02/05/2025 09:39:22 Lumbar segmental dysfunction 165198685 M99.03 Low back pain 579965810 M54.50 Somatic dy sfunction of sacral spine 194241874 M99.04 Thoracic s egmental dysfunction 670468859 M99.02 Health Concerns Section Related Observation LastModified by Organization Detai ls LastModified Time None Recorded Concern Status LastModified by Organization Details LastModified Time None Recorded Advance Directives Directive None Recorded Payers Encounter Date Sequence Insurance Name Policy Number Policy Corral Covered Member ID Corral Member ID Guarantor Name 11/24/2024 1 *SELF PAY* Da katja Xiomy 02/03/2025 1 *SELF PAY* Da katja Xiomy Notes Date Note Type Note Provider Name and Address Organization Details Recorded Time 11/24/2024 text/html HPI - Lumbar SpineReported bypatient.Location: left; With radiation to knee Quality:aching Severity:not changing Timing:morning Aggravating Factors:standing Alleviating Factors:ice Clark Pastrana [place] [address], [place], [address], [facility] 11/25/2024 17:51:42 02/03/2025 text/html HPI - Lumbar SpineReported bypatient.Location: left Quality:aching Severity:moderate Timing:morning Aggravating Factors:walking; lifting; carrying; twisting Alleviating Factors:rest Clark Pastrana [place] [address], [place], [address], [facility] 02/03/2025 18:58:32
--- OUTSIDE RECORDS SUMMARY | 2025-02-10 10:31 | XMS_ITS | Clinical Summary ---
Author Organization [facility] Address [address] [place] [address] Care Team Providers Care Calender Wind Up Helper Name Role Phone Sonia Chou M.D. Primary Care Provider [phone] Source Comments Patient records contain information from all sites at [facility]. For routine questions regarding patient records, call [phone] during business hours, M-F 8:00 AM - 5:00 PM Central Time. Record requests for emergency care only can be directed to [phone] at any time.[facility] Allergies Active Allergy Reactions Criticality Noted Date Comments Penicillins Other (see comments) Medium 05/06/2019 throat rahman. Occurred around the year 1999. Bison a severe heartburn-like burning sensation up the [...] week 04/05/2022 How often do you attend formerly [facility] or jain services? 1 to 4 times per year 04/05/2022 Do you belong to any clubs o r organizations such as protestant groups, unions, fraternal or athletic groups, or [...] Answer Date Recorded PHQ-2 Score 0 04/10/2022 [facility] Occupat ional [facility] - Occupational Stress [...] your living situation today? I have a [facility] place to live 05/03/2023 Education Answer Date [...] Comments Blood Pressure 115/73 07/16/2023 2:43 PM SAFETY MANAGER Pulse 66 07/16/2023 2:43 PM SAFETY MANAGER Temperature 36.2 C (97.2 F) 05/10/2023 10:17 AM CDT Respiratory Rate 20 05/03/2023 10:09 PM CDT Oxygen Saturation 96% 05/10/2023 10:17 AM CDT Inhaled Oxygen Concentration - - Weight 134 kg (294 lb 15.6 oz) 07/16/2023 7:48 A M SAFETY MANAGER Height 179 cm (5' 10.47) 07/05/2021 3:09 [...] LIPID PANEL, S Routine 07/16/2023 9:29 AM SAFETY MANAGER Discomfort Chest COLOGUARD Routine 05/30/2023 5:15 AM CDT Screening Colon Cancer Average Risk BASIC METABOLIC PANEL, S/P STAT 05/03/2023 9:47 PM CDT from Last 3 Months or Most Recently Relevant to Health Maintenance Results * (ABNORMAL) Lipid Panel (07/16/2023 9:29 AM SAFETY MANAGER) Triglycerides 139 mg/dL 07/16/2023 9:50 AM SAFETY MANAGER RDWG Comment: ----REFERENCE VALUE---- Normal: <150 mg/dL Borderline High: 150-199 mg/dL High: 200-499 mg/dL Very High: > or =500 mg/dL Cholesterol, Total 252(H) mg/dL 2022 9:50 AM SAFETY MANAGER RDWG Comment: ----REFERENCE VALUE---- Desirable: < 200 mg/dL Borderline High: 200 - 239 mg/dL High: > or = 240 mg/dL Cholesterol, LDL, Calculated 175(H) mg/dL 07/16/2023 9:50 AM SAFETY MANAGER RDWG Comment: ----REFERENCE VALUE---- Desirable: <100 mg/dL Above Desirable: 100-129 mg/dL Borderline High: 130-159 mg/dL High: 160-189 mg/dL Very High: >=190 mg/dL ----ADDITIONAL INFORMATION---- LDL cholesterol calculated using the Rich/NIH equation. Cholesterol, HDL 52 >=40 mg/dL 07/16/20 9:50 AM SAFETY MANAGER RDWG Cholesterol, Non-HDL, Calculated 200(H) mg/dL 07/16/2023 9:50 AM SAFETY MANAGER RDWG Comment: ----REFERENCE VALUE---- Desirable: <130 mg/dL Above Desirable: 130-159 mg/dL Borderline High: 160-189 mg/dL High: 190-219 mg/dL Very High: > or =220 mg/dL Fasting (8 HR or more) No 07/16/2023 9:30 AM SAFETY MANAGER RDWG Blood (Blood, Venous) 07/16/2023 9:29 AM SAFETY MANAGER 07/16/2023 9:30 AM SAFETY MANAGER us Zeeshan Noel APRN, C.N.P. LAB BLOOD ADD-ON Final Result [facility] [address] [place] [address], [facility] RDWG [facility] [place] [address] [place] [address] * Cologuaquin - Sent Out Lab (05/30/2023 [...] Charles et al, N Engl J Med 2014;370(14):2324-5723) The normal value (reference range) for this assay is negative. COLOGUARD RE-SCREENING RECOMMENDATION: Periodic colorectal cancer screening is an important part of preventive healthcare for asymptomatic individuals at average risk for colorectal cancer. Following a negative Cologuard result, the [place] [employer] Society and U.S. Multi-Society Task Force screening guidelines recommend a Cologuard re-screening interval of 3 years. References: [place] [employer] Guideline for Colorectal Cancer Screening: https://www.cancer.org/cancer/qhfky-tsxzkf-ozrewm/detection- diagnosis-staging/acs-recommendations.html.; Mario GOMES, Verna DIAZ, Bradford DicksonK, Colorectal Cancer Screening: Recommendations for Physicians and Patients from the U.S. Multi-Society Task Force on Colorectal Cancer Screening , Am J Gastroenterology 2017; 112:4355-1266. TEST DESCRIPTION: Composite algorithmic analysis of stool [...] (Jae Elizondo al, N Engl J Med 2014;370(14):5302-1213.) Cologuard may produce a false negative or false positive result (no colorectal cancer or precancerous polyp present at colonoscopy follow up). A negative Cologuard test result does not guarantee the absence of CRC or advanced adenoma (pre-cancer). The current Cologuard screening interval is every 3 years. ([place] [employer] Society and U.S. Multi-Society Task Force). Cologuard performance data in a 10,000 patient pivotal study using colonoscopy as the reference method can be accessed at the following location: www.[employer]/results. Additional description of the Cologuard test process, warnings and precautions can be found at www.Talknoterd.com. Stool (Stool) 05/30/2023 5:1 5 AM CDT 05/31/2023 4:59 PM CDT Kamini Dennis APRN, C.N.P., D.N.P. LAB BODY FLUIDS AND STOOLS ORDERABLES Final Result [facility] [address] [place] [address] [facility] [address] [facility], [address] [place] [address] * Basic Metabolic Panel (05/03/2023 9:47 PM [...] P.A. LAB BLOOD ADD-ON F inal Result [facility] [address] [place] [address], [facility] CNFL [facility] [address] [address] from Last 3 Months or Most Recently Relevant to Health Maintenance Insurance [facility] [place] [id number] Care Teams Calender Wind Up Helper Relationship Specialty Start Date End Date Sonia Chou M.D. [address] [place] [phone] PCP - General 01/25/24
--- OUTSIDE RECORDS SUMMARY | 2025-02-10 10:31 | XMS_ITS | Clinical Summary ---
Author Organization [employer] [facility] Address [address] [place] [address] Care Team Providers Care Ammonia Nitrate Operator Name Role Phone Pcp, No Primary Care [...] (09/09/2011): August 2011: ALT 47. TOBACCO USE Encounters Date Type Department Care Team Description 01/20/2025 1:00 PM CDT Orders Only [facility] [place] [facility] [address] [place] [address] 2 scans: (2-Ord) ECHO STRESS EXRCSE W CNTRST W COLOR W LTD DOPPLER ([id number]) from Last 3 Months Immunizations Immunization Administration Dates Next Due Td, [...] on file Legal Sex Male 5:49 AM CASTING INSPECTOR Gender Identity Not on file Sexual Orientation Not on file Obstetrics History Last Filed Vital Signs Vital Sign Reading Time Taken Comments Blood Pressure 127/88 05/07/2024 2:57 PM CDT Pulse 88 05/07/2024 2:57 PM CDT Temperature 36.8 C (98.3 F) 07/21/2022 11:13 AM CASTING INSPECTOR Respiratory Rate 16 11/07/2019 2:10 PM CASTING INSPECTOR Oxygen Saturation 96% 05/07/2024 2:57 PM CDT Inhaled Oxygen Concentration - - Weight 132.2 kg (291 lb 8 oz) 04/10/2023 7:01 AM CDT Height 176.5 cm (5' 9.49) 11/07/2019 2:10 PM CS T Body Mass Index 42.44 11/07/2019 2:10 PM CASTING INSPECTOR Plan of Treatment Health Maintenance Due Date Last Done Comments Tdap 1988 HIV for age 15-65 1992 Hepatitis C screening for age 18-79 11/30/1995 Hepatitis B series for 19+ (1 of 3 - 19+ 3-dose series) 1996 BMI (ht and wt on same day) for age 18+ 11/07/2020 11/07/2019, 10/28/2019, 12/10/2018, Additional history exists Depression screening for age 12+ 11/07/2020 11/07/2019, 10/30/2019, 10/28/2019, Additional history exists Tetanus booster 02/07/2021 02/07/2011 Colonoscopy through age 75 2022 Lipids for age 45-75 2022 09/08/2011 COVID-19 vaccine series ( season) 2024 06/03/2021 Influenza Vaccine (Season Ended) 2025 Pneumococcal series for age 6-49 Aged Out No longer eligible based on patient's age to complete this topic Procedures Procedure Name Priority Date/Time Associated Diagnosis Comments ECHO STRESS EXRCSE W CNTRST W COLOR W LTD DOPPLER Routine 01/20/2025 2:01 PM CDT Chest pain LIPID PANEL W REFLEX MEASURED LDL Routine 09/08/2011 8:14 AM CASTING INSPECTOR Screening cholesterol level from Last 3 Months or Most Recently Relevant to Health Maintenance Results * ECHO STRESS EXRCSE W CNTRST W COLOR W LTD DOPPLER (01/20/2025 2:01 PM CDT) AORTIC VALVE MEAN PG 5 mmHg LVEDD 5.2 cm EJECTION FRACTION 55 - 60% Anatomical Region Laterality Modality Ultrasound 01/20/2025 1:13 PM CDT Narrative 01/20/2025 2:16 PM CDT STRESS ECHOCARDIOGRAM JOHNNY SON : 1975 49 years Study Date: 01/20/2025 1:13:55 PM Gender: M BP: 124/80 mmHg Height: 178.00 cm BSA: 2.35 m Weight: 120.00 kg Tech: BELLA Referring MD: SUMIT COBIAN Site: [facility] Reading Location: Mobile-OP Patient Location: Outpatient. Procedure: Stress Echo, Contrast, Limited 2D , Color Doppler and Limited Spectral Doppler. Jason stress echo. Indication for study: Chest pain Cardiac Rhythm: Regular.Study quality: Fair. Final Impressions: 1. Likely negative stress echo for ischemia. Possibly small inferolateral wall motion abnormality post-exercise only seen on short axis imaging. If high suspicion for obstructive CAD consider coronary CTA. 2. Maximum stress test with 93.1% of age predicted maximum heart rate achieved. 3. Post stress, normal left ventricular size, normal global systolic function with an estimated EF of 70 to 75%. 4. During stress exam the patient developed no significant symptoms. 5. Echo contrast was administered to enhance visualization of all left ventricular segments. 6. Normal screening echocardiogram - no significant valve disease. 7. See separate report for EKG interpretation. Stress Data: HR Systolic Diastolic Time Duration Minutes Seconds Baseline 66 bpm 124 80 mmHg 10 :0 Peak 161 bpm 198 100 mmHg Max Pred HR 173 % of Max 93% Double Product [id number] Echo Findings:This is a negative stress echo test for ischemia. Post stress, normal left ventricular size, normal global systolic function with an estimated EF of 70 to 75%. LV regional wall motion abnormalities are not present post exercise. EKG:See separate report for EKG interpretation. Exam Protocol:The patient presents with no significant symptoms at baseline. The patient exercised 10 min 0 sec to stage IV according to the Jason stress echo protocol. Test terminated due to shortness of breath. 13.5 METS were achieved. The patient achieved a heart rate of 161 bpm which is 93.1% of maximum predicted heart rate. Maximum systolic blood pressure was 198 [place] [address]. Maximum stress test with 93.1% of age predicted maximum heart rate achieved. The blood pressure response was normal. The patient developed no significant symptoms during the stress exam. Low (less than 1% annual mortality rate) non invasive risk stratification. Chamber Sizes and Function Normal left ventricular size, normal global systolic function with an estimated EF of 55 - 60%. LV regional wall motion abnormalities are not present. Right ventricular cavity size is normal, global systolic RV function is normal. RV wall thickness is normal. Valves, RV Pressures and Diastolic Function The aortic valve is normal in structure and trileaflet, no stenosis and no regurgitation. The mitral valve is normal in structure, no mitral regurgitation. The tricuspid valve is normal in structure, not evident tricuspid regurgitation. MEASUREMENTS AND CALCULATIONS 2-D Measurements and LV Function: LVID (d) 5.2 cm LV FS% (2D) 41 % LVID (s) 3.1 cm LVOT diameter 2.4 cm IVS (d) 1.0 cm HR 66 bpm LVPW (d) 1.2 cm Ao Sinus 3.0 cm Ao Sinus ULN 4.0 cm * Asc Ao ULN 3.9 cm * LA 4.4 cm * Input BSA outside of range, reported values correspond to BSA = 2.1 Diastology: Mitral E Peak 0.90 m/s A Peak 0.55 m/s E/A 1.6 DT 202 msec Aortic Valve: Vmax 1.7 m/s ARTURO (V) 3.87 cm VTI 0.36 m ARTURO (I) 3.51 cm LVOT V max 1.5 m/s Max PG 11 mmHg LVOT VTI 0.29 m Mean PG 5 mmHg SV 126 ml Dim Index 0.81 SV index 53 ml/m Mitral Valve: MVA 3.8 cm MV P 1/2 59 msec Contrast documentation: 4 ml diluted Definity, lot #[id number], [facility]# [id number] was administered peripherally to enhance visualization of all left ventricular segments. . This study was interpreted by an [facility] accredited facility. CC: [facility] ([facility]. Final Procedure Note Tavo Marsh MD - 01/20/2025 STRESS ECHOCARDIOGRAM JOHNNY SON : 1975 49 years Study Date: 01/20/2025 1:13:55 PM Gender: M BP: 124/80 mmHg Height: 178.00 cm BSA: 2.35 m Weight: 120.00 kg Tech: [facility] Referring MD: SUMIT COBIAN Site: [facility] Reading Location: Mobile-OP Patient Location: Outpatient. Procedure: Stress Echo, Contrast, Limited 2D , Color Doppler and LimitedSpectral Doppler. Jason stress echo. Indication for study: Chest pain Cardiac Rhythm: Regular.Study quality: Fair. Final Impressions: 1. Likely negative stress echo for ischemia. Possibly small inferolateralwall motion abnormality post-exercise only seen on short axis imaging. Ifhigh suspicion for obstructive CAD consider coronary CTA. 2. Maximum stress test with 93.1% of age predicted maximum heart rateachieved. 3. Post stress, normal left ventricular size, normal global systolicfunction with an estimated EF of 70 to 75%. 4. During stress exam the patient developed no significant symptoms. 5. Echo contrast was administered to enhance visualization of all leftventricular segments. 6. Normal screening echocardiogram - no significant valve disease. 7. See separate report for EKG interpretation. Stress Data: HR Systolic Diastolic Time Duration Minutes Seconds Baseline 66 bpm 124 80 mmHg 10 :0 Peak 161 bpm 198 100 mmHg Max Pred HR 173 % of Max 93% Double Product [id number] Echo Findings:This is a negative stress echo test for ischemia. Poststress, normal left ventricular size, normal global systolic function withan estimated EF of 70 to 75%. LV regional wall motion abnormalities arenot present post exercise. EKG:See separate report for EKG interpretation. Exam Protocol:The patient presents with no significant symptoms atbaseline. The patient exercised 10 min 0 sec to stage IV according to [facility] stress echo protocol. Test terminated due to shortness of breath.13.5 METS were achieved. The patient achieved a heart rate of 161 bpmwhich is 93.1% of maximum predicted heart rate. Maximum systolic bloodpressure was 198 [place] [address]. Maximumstress test with 93.1% of age predicted maximum heart rate achieved. Theblood pressure response was normal. The patient developed no significantsymptoms during the stress exam. Low (less than 1% annual mortality rate)non invasive risk stratification. Chamber Sizes and Function Normal left ventricular size, normal global systolic function with anestimated EF of 55 - 60%. LV regional wall motion abnormalities are notpresent. Right ventricular cavity size is normal, global systolic RVfunction is normal. RV wall thickness is normal. Valves, RV Pressures and Diastolic Function The aortic valve is normal in structure and trileaflet, no stenosis and noregurgitation. The mitral valve is normal in structure, no mitralregurgitation. The tricuspid valve is normal in structure, not evidenttricuspid regurgitation. MEASUREMENTS AND CALCULATIONS 2-D Measurements and LV Function: LVID (d) 5.2 cm LV FS% (2D)41 % LVID (s) 3.1 cm LVOT diameter2.4 cm IVS (d) 1.0 cm HR66 bpm LVPW (d) 1.2 cm Ao Sinus 3.0 cm Ao Sinus ULN 4.0 cm * Asc Ao ULN 3.9 cm * LA 4.4 cm * Input BSA outside of range, reported values correspond to BSA = 2.1 Diastology: Mitral E Peak 0.90 m/s A Peak 0.55 m/s E/A 1.6 DT 202 msec Aortic Valve: Vmax 1.7 m/s ARTURO (V) 3.87 cm VTI 0.36 m ARTURO (I) 3.51 cm LVOT V max 1.5 m/s Max PG 11 mmHg LVOT VTI 0.29 m Mean PG 5 mmHg SV 126 ml Dim Index 0.81 SV index 53 ml/m Mitral Valve: MVA 3.8 cm MV P 1/2 59 msec Contrast documentation: 4 ml diluted Definity, lot #[id number], [facility]#[id number] was administered peripherally to enhance visualization of allleft ventricular segments. . This study was interpreted by an [facility] accredited facility. CC: [facility] (med records) [facility]. Final us Sumit Cobian MD ECHO ORD Final Result * LIPID PANEL W REFLEX MEASURED LDL (09/08/2011 8:14 AM CASTING INSPECTOR) CHOLESTEROL,TOTAL 183 110 - 199 mg/dL [facility] TRIGLYCERIDES 110 40 - 149 mg/dL [facility] HDL CHOLESTEROL 53 >40 mg/dL [facility] CHOL/HDL RATIO 3.45 <4.51 [facility] LDL CHOLESTEROL 108 <131 mg/dL [facility] PATIENT STATUS Fasting [facility] Blood specimen (specimen) BLOOD SPECIMEN / Unknown 09/08/2011 8:14 AM CASTING INSPECTOR 09/08/2011 8:13 AM CASTING INSPECTOR us Myles Phillips MD CHEMISTRY Final Res ult [facility] INTERNAL ZIP [address] [address] from Last 3 Months or Most Recently Relevant to Health Maintenance Insurance [facility] Care Teams Ammonia Nitrate Operator Relationship Specialty Start Date End Date Pcp, No . PCP - General 01/29/18
--- OUTSIDE RECORDS SUMMARY | 2025-02-10 10:31 | XMS_ITS | Continuity of Care Document ---
Author Organization [place] [facility] Address [address] [place] [address] Assessment Encounter Date Assessment Date Assessment LastModified by Organization Details LastModified Time 02/03/2025 02/03/2025 ASSESSMENT: Patient is a good [...] to contact our office. [email or web address] Not available 02/03/2025 18:56:29 Plan of Treatment [...] Organization Details Recorded Time Thoracic segmental dysfunction [id number] Active 2024 Clark Pastrana [place] [address], [place], [address], [place] [facility] 17:49:23 Lumbar segmental dysfunction [id number] Active 2024 [place] [address], [place], [address], [facility] [place] [facility] 5 17:49:23 Low back pain 909701958 Active 2024 [place] [address], [facility] [place], [address], [facility] [place] [facility] 17:49:23 Somatic dysfunction of sacral spine 560631237 Active 2024 [facility] [place] [address], [facility] [place], [address], [facility] [place] [facility] 17:49:23 Problem Notes None recorded. Procedures Surgical History Date Name Laterality Status Provider Name and Address Organization Details Recorded Time 5 65479: Spinal manipulation , 3 to 4 regions completed [place] [address], [place], [address], Formerly [facility], [facility]–1983 02/03/2025 18:58:15 38763: Spinal manipulation , 3 to 4 regions completed [place] [address], [place], [address], Formerly [facility], [facility] 11/25/2024 17:51:26 Imaging Results None recorded. Procedure [...] SNOMED-CT Code Diagnosis ICD10 Code Diagnosis Note [id number] Clark Pastrana [place] [facility] [address] [place] [address] 02/03/2025 16:23:22 02/05/2025 09:39:22 Lumbar segmental dysfunction 504696333 M99.03 Low back pain [id number] M54.50 Somatic dy sfunction of sacral spine [id number] M99.04 Thoracic s egmental dysfunction 280694011 M99.02 Health Concerns Section Related Observation LastModified by Organization Detai ls LastModified Time None Recorded Concern Status LastModified by Organization Details LastModified Time None Recorded Payers Encounter Date Sequence Insurance Name Policy Number Policy Corral Covered Member ID Corral Member ID Guarantor Name 02/03/2025 1 *SELF PAY* Mamadou Stauffer Notes Date Note Type Note Provider Name and Address Organization Details Recorded Time 02/03/2025 text/html HPI - Lumbar SpineReported bypatient.Location: left Quality:aching Severity:moderate Timing:morning Aggravating Factors:walking; lifting; carrying; twisting Alleviating Factors:rest Clark Pastrana [place] [address], [place], [address], [facility] [place] [facility] 02/03/2025 18:58:32
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
--- NOTE | 2025-02-10 11:17 | CRLHL7_ITS ---
For Patients: As a result of the Century Cures Act, medical imaging exams and procedure reports are released immediately into your electronic medical record. You may view this report before your referring provider. If you have questions, please contact your health care provider. Indication: Irregular heart rate Technique: Chest 1 view Comparison: Chest x-ray 11/25/2024 Findings/Impression: Cardiovascular and mediastinum: Heart size and vasculature are normal in caliber and appearance. Lungs and pleural space: Lungs are clear. No sign of infiltrate or mass. No sign of pleural effusion. No pneumothorax. Bones and soft tissues: No acute findings. Dictated by Branden Barnett MD @ 02/10/2025 12:20:03 PM (Electronically Signed)
[2025-02-10 11:48] LABS: Basophils Absolute Auto 0.04 K/uL (0.00-0.30); Basophils Percent Auto 0.5 % (0.0-3.0); Eosinophils Absolute Auto 0.26 K/uL (0.00-0.50); Eosinophils Percent Auto 3.2 % (0.0-7.0); Hematocrit* 47.5 % (37.0-53.0); Hemoglobin* 15.7 gm/dL (13.5-17.5); Immature Granulocytes Abs Auto 0.02 K/uL (0.00-0.30); Immature Granulocytes Pct Auto 0.2 %; Lymphocytes Absolute Auto 2.23 K/uL (0.90-2.90); Lymphocytes Percent Auto 27.5 % (20-44); Mean Corpuscular HGB Conc 33 gm/dL (32-36); Mean Corpuscular Hemoglobin 28 pg (26-34); Mean Corpuscular Volume 84 fL (80-100); Monocytes Percent Auto 6.7 % (0.0-11.0); Neutrophils Absolute Auto 5.02 K/uL (1.7-7.0); Neutrophils Percent Auto 61.9 % (42.0-72.0); Platelet Count* 279 K/uL (140-440); RDW Coefficient of Variation % 13.8 % (11.5-15.5); Red Blood Count* 5.64 m/uL (4.30-5.90); White Blood Count* 8.11 K/uL (4.50-11.00)
[2025-02-10] MEDS: 0.9 % SODIUM CHLORIDE 1000 ml 1,000 ML IV (11:48)
[2025-02-10 11:50] LABS: Slide Review Reflex No
[2025-02-10 12:09] LABS: Chloride* 107 mmol/L (96-114); Sodium* 139 mmol/L (135-149)
[2025-02-10 12:10] LABS: Potassium* 4.4 mmol/L (3.6-5.1)
[2025-02-10 12:12] LABS: Blood Urea Nitrogen* 18 mg/dL (5-24); Creatinine* 0.9 mg/dL (0.5-1.5); Est. Creatinine Clearance* 104.77; Estimated Glomerular Filt Rate 106 ml/min
[2025-02-10 12:13] LABS: Anion Gap 7 mEq/L (7-15); Carbon Dioxide* 25 mmol/L (20-32); Glucose* 83 mg/dL (60-115); Magnesium* 2.2 mg/dL (1.5-2.6)
[2025-02-10 12:21] LABS: D Dimer Quantitative* 0.17 ug/ml (0.00-0.50)
[2025-02-10] MEDS: MAGNESIUM IV 2 GM/50 ML PIGGYBACK IVPB (13:10)
== END 2025-02-10 15:38 | disposition home or self-care (01) ==
PROVIDERS: Emergency Provider Family Medicine; PCP Internal Medicine
DX: I48.91 Unspecified atrial fibrillation (principal); R06.02 Shortness of breath; Z79.899 Other long term (current) drug therapy
CPT/HCPCS: 36415; 71045; 80048; 81025; 83735; 84443; 84484; 85025; 85379; 93005; 93246; 96365; 96366; 99284; 99285; J3475; J7030

== ENCOUNTER 2025-07-28 12:55 | Emergency (ER) | payer BC, SELFPAY ==
[2025-07-28 13:07] VITALS: BP 132/85; PULSE 76; RESP 18; TEMP 37.2; O2SAT 96
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
[2025-07-28 14:15] LABS: Hematocrit* 46.2 % (37.0-53.0); Hemoglobin* 15.2 gm/dL (13.5-17.5); Immature Granulocytes Abs Auto 0.02 K/uL (0.00-0.30); Immature Granulocytes Pct Auto 0.2 %; Mean Corpuscular HGB Conc 33 gm/dL (32-36); Mean Corpuscular Hemoglobin 28 pg (26-34); Mean Corpuscular Volume 84 fL (80-100); RDW Coefficient of Variation % 13.8 % (11.5-15.5); Red Blood Count* 5.53 m/uL (4.30-5.90); White Blood Count* 10.17 K/uL (4.50-11.00)
[2025-07-28 14:19] LABS: Troponin, Point-of-Care* 0.00 ng/ml (0.01-0.04)
[2025-07-28 14:25] LABS: Lymphocytes Absolute Auto 1.80 K/uL (0.90-2.90); Slide Review Reflex No
[2025-07-28 14:32] LABS: Chloride* 100 mmol/L (96-114); Sodium* 138 mmol/L (135-149)
[2025-07-28 14:33] LABS: Potassium* 4.4 mmol/L (3.6-5.1)
[2025-07-28 14:35] LABS: Blood Urea Nitrogen* 13 mg/dL (5-24); Creatinine* 0.9 mg/dL (0.5-1.5); Estimated Glomerular Filt Rate 106 ml/min
[2025-07-28 14:36] VITALS: BP 129/81; PULSE 65; RESP 18; TEMP 37.1; O2SAT 95
[2025-07-28 14:36] LABS: Anion Gap 12 mEq/L (7-15); Calcium* 9.4 mg/dL (8.4-10.6); Carbon Dioxide* 26 mmol/L (20-32); Glucose* 101 mg/dL (60-115)
== END 2025-07-28 15:08 | disposition home or self-care (01) ==
PROVIDERS: Emergency Provider Emergency Medicine Emergency Medical Services; PCP Internal Medicine
DX: R07.89 Other chest pain (principal); F41.9 Anxiety disorder, unspecified
CPT/HCPCS: 36415; 80048; 84484; 85025; 93005; 99284

== ENCOUNTER 2025-07-30 10:00 | Outpatient (CLI) | payer BC, SELFPAY | END 2025-07-30 10:01 | disposition home or self-care (01) | LOC: NFLDREF 10:00 | PROVIDERS: PCP Internal Medicine; Visit Provider Internal Medicine | DX: R07.89 Other chest pain (principal) | CPT/HCPCS: 80061 ==